=== PATIENT | female | born 2000 | race Two or more races ===

== ENCOUNTER 2018-04-29 10:23 | Emergency (ER) | payer BC, OTHER ==
[~2018-04-29] VITALS: Ht 167.6 cm; Wt 60.3 kg
[2018-04-29 12:30] VITALS: BP 106/41
== END 2018-04-29 15:12 | disposition home or self-care (01) ==
LOC: ER 10:23
DX: S93.401A Sprain of unspecified ligament of right ankle, initial encounter (principal); W19.XXXA Unspecified fall, initial encounter; Y93.89 Activity, other specified; Y99.8 Other external cause status; Y92.89 Other specified places as the place of occurrence of the external cause
CPT/HCPCS: 73610; 81025